=== PATIENT | male | born 1970 | race Caucasian/White ===

== ENCOUNTER → 2017-10-17 15:18 | Outpatient (CLI) | payer BC, SELFPAY | PROVIDERS: Family Provider Family Medicine; PCP Family Medicine; Visit Provider Family Medicine | DX: E03.9 Hypothyroidism, unspecified (principal) | CPT/HCPCS: 36415; 84443 ==

== ENCOUNTER → 2017-12-30 08:59 | Outpatient (CLI) | payer OTHER, SELFPAY ==
--- NOTE | 2017-12-30 09:11 | RAD_ITS ---
STUDY: X-RAY - LUMBAR SPINE REASON FOR EXAM: Male, 47 years old. Low back strain. TECHNIQUE: 5 view(s) of the lumbar spine were obtained including oblique views. COMPARISON: None FINDINGS: Normal lumbar lordosis. There is no substantial scoliosis. There is a normal alignment of the vertebrae. There is mild degree of endplate spondylosis of the lumbar vertebrae. Normal disc space heights. The soft tissue structures are unremarkable. RAD/L/S Spine Min 4 Views IMPRESSION: Degenerative changes of the spine, as detailed above. Electronically Signed: Jaime Luis MD at 9:42 EDT Tel [phone], Service support ,
== END ==
PROVIDERS: Family Provider Family Medicine; PCP Family Medicine; Visit Provider Physician Assistant Surgical
DX: S39.012A Strain of muscle, fascia and tendon of lower back, initial encounter (principal)
CPT/HCPCS: 72110

== ENCOUNTER → 2018-06-03 15:24 | Outpatient (CLI) | payer BC, SELFPAY ==
[2018-06-03 17:54] LABS: Anion Gap 8 (5-15); BUN 19 mg/dL (7-18); BUN/Creat Ratio 19.3 RATIO (10-20); Calcium,Total 8.6 mg/dL (8.5-10.1); Chloride 106 mmol/L (98-107); Creatinine, Serum 0.98 mg/dL (0.70-1.30); EST Glomerular Filtration Rate 86 mL/min (>60); Est Glom Filt Rate - Afr Amer 104 mL/min (>60); Glucose 93 mg/dL (74-106); Potassium 3.8 mmol/L (3.5-5.1); Sodium Level 141 mmol/L (136-145); T4 Free Direct 1.12 ng/dL (0.76-1.46)
[2018-06-03 18:06] LABS: Vitamin D,25 Hydroxy 63.4 ng/mL (29.95-100.01)
== END ==
PROVIDERS: Family Provider Family Medicine; PCP Family Medicine; Visit Provider Family Medicine
DX: E03.9 Hypothyroidism, unspecified (principal); E55.9 Vitamin D deficiency, unspecified
CPT/HCPCS: 36415; 80048; 82306; 84439; 84443

== ENCOUNTER → 2019-03-19 16:11 | Outpatient (CLI) | payer BC, SELFPAY ==
[2018-08-19 15:25] VITALS: BMI 28.0
[2019-03-19 17:43] LABS: Anion Gap 6 (5-15); BUN 16 mg/dL (7-18); BUN/Creat Ratio 12.9 RATIO (10-20); Calcium,Total 8.8 mg/dL (8.5-10.1); Chloride 107 mmol/L (98-107); Creatinine, Serum 1.24 mg/dL (0.70-1.30); EST Glomerular Filtration Rate 66 mL/min (>60); Est Glom Filt Rate - Afr Amer 79 mL/min (>60); Glucose 81 mg/dL (74-106); Potassium 3.8 mmol/L (3.5-5.1); Sodium Level 142 mmol/L (136-145); T4 Free Direct 0.99 ng/dL (0.76-1.46); Vitamin D,25 Hydroxy 68.9 ng/mL (29.95-100.01)
== END ==
PROVIDERS: Family Provider Family Medicine; PCP Family Medicine; Visit Provider Family Medicine
DX: E03.9 Hypothyroidism, unspecified (principal); E55.9 Vitamin D deficiency, unspecified; N20.0 Calculus of kidney
CPT/HCPCS: 36415; 80048; 82306; 84439; 84443

== ENCOUNTER 2019-05-08 09:02 | Emergency (ER) | payer BC, SELFPAY ==
[2018-08-19 15:25] VITALS: BMI 28.0
[2019-05-08 09:02] VITALS: BP 136/77; PULSE 68; RESP 19; TEMP 36.9; O2SAT 99; BMI 28.3
--- NOTE | 2019-05-08 09:12 | CT_ITS ---
STUDY: CT ABDOMEN AND PELVIS WITH CONTRAST REASON FOR EXAM: Male, 49 years old. Abdominal pain. Vomiting. Nausea. Diarrhea. RADIATION DOSAGE (If Supplied By Facility): CTDIvol = ( 13.55 ) mGy, DLP = ( 791.83 ) mGycm TECHNIQUE: Transaxial images were obtained from the dome of the diaphragm to the symphysis pubis without oral contrast. 100mL IV Isovue 300 was administered. Sagittal and coronal images were reconstructed. Individualized dose optimization techniques were used for this CT. COMPARISON: January 25, 2017. FINDINGS: Lung bases: Slightly coarse lung markings. No acute process. Heart: Mitral valve calcifications. Liver: Portal venous congestion. No focal hepatic lesions. Mild hepatic steatosis. Gallbladder/biliary ducts: Unremarkable. Pancreas: Unremarkable. Spleen: Unremarkable. Adrenal glands: Unremarkable. Kidneys/ureters/bladder: Slightly delayed left renal (axial image 40 series 2). Left perinephric/periureteral fat stranding. Mildly distended left ureter. Punctate 1 mm left distal ureteral stone (axial image 107 series 2). Normal urinary bladder. Normal right ureter. Prostate: Punctate prostate calcifications. Large bowel/small bowel: Underdistended sigmoid colon. No perforation. No obstruction. No pneumatosis. No acute large bowel or small bowel process. Appendix: No secondary signs of appendicitis. Gastroesophageal junction/stomach: Unremarkable. Retroperitoneum/lymph nodes: No intra-abdominal free air. No ascites. No pathologically enlarged lymph nodes. Vascular: Minimal vascular calcification. No acute process. Osseous structures: Minimal degenerative changes. No acute process. Subcutaneous/soft tissues: Tiny fat-containing umbilical hernia. Minimal paraspinal muscle atrophy. No acute process. CT/Abdomen/Pelvis W IV Cont ONLY IMPRESSION: 1 mm minimally obstructive left distal ureteral stone with mild left hydroureteronephrosis, delayed left nephrogram, left perinephric/periureteral fat stranding concerning for ascending urinary tract infection/pyelonephritis (correlate urinalysis, blood cultures and WBC) Nonspecific portal venous congestion Additional chronic/degenerative findings, as above Electronically Signed: Jaosn Putnam DO at 10:37 EDT Tel , Service support ,
--- NOTE | 2019-05-08 09:13 | ED.DCSUM_ITS ---
History of Present Illness Informant: Patient - Abdominal Pain/Flank Pain Onset: Today Context: Gradual Onset Timing: Continuous Quality: Dull Location: LLQ Current Severity: Severe Maximum Severity: Severe Worsened by: Movement Relieved by: Remaining Still - Nausea/Vomiting/Emesis GI Symptom: Nausea. Negative for: Vomiting Onset: Today Quality: Negative for: Nonbilious, Blood streaks, Coffee ground, Hematemesis Severity: Moderate - Diarrhea/Melena/Hematochezia GI Symptom: Diarrhea. Negative for: Melena, Hematochezia Onset: Today Stool Quality: Loose, Watery. Negative for: Mucous, Black, Maroon, KRAIG per rectum Severity: Moderate Associated Symptoms: Negative for: Dysuria, Frequency, Hematuria, Urgency Narrative: 49-year-old male presents with left lower quadrant abdominal pain. Symptoms woke him up from sleep about 7 to 8 hours ago. They have been constant. It is a dull sharp pain, left lower quadrant. It does not radiate. He has had nausea without vomiting. He has had 2 episodes of loose stool. No melena or hematochezia. No urinary symptoms. No back pain. No fevers. History of kidney stones but states that this feels different. He denies any history of colonoscopy or abdominal surgery. Prior similar symptoms: No Recent Illness/Hospitalization: No <Ld Proctor - Last Filed: 05/08/19 12:04> <Prasanna Silva - Last Filed: 05/08/19 16:13> Chief Complaint: Abd Pain Past Medical History Prior records reviewed: Yes Past Medical History: - - seizures Surgical History: no surgical history Lives: With Family Smoking Status: Never smoker <Ld Proctor - Last Filed: 05/08/19 12:04> <Prasanna Silva - Last Filed: 05/08/19 16:13> - Allergies and Home Meds Allergies/Adverse Reactions: Allergies No Known Allergies Allergy (Verified 08/19/18 15:26) Primary Care Physician: Kemal Brown MD [STAFF PHYSICIAN] - Russ Hager MD [Primary Care Provider] - Review of Systems All systems negative except as indicated General: Denies: Chills, Fever Cardiovascular: Denies: Chest pain Respiratory: Denies: Dyspnea Gastrointestinal: Reports: Abdominal pain, Nausea, Diarrhea. Denies: Vomiting, Constipation, Melena, Hematochezia Genitourinary: Denies: Dysuria, Hematuria, Frequency <Ld Proctor - Last Filed: 05/08/19 12:04> Physical Exam Vital Signs/Narrative: Vital Signs Temp Pulse Resp BP Pulse Ox 05/08/19 09:02 98.4 F 68 19 H 136/77 H 99 Inital Vital Signs reviewed: Yes General: Well nourished, Well developed, No Acute Distress Head: Normocephalic, Atraumatic Eyes: Perrl, EOMI ENT: Moist mucous membranes Neck: Supple, Nontender Cardiovascular: Regular rate, Regular rhythm, Bradycardia Respiratory: No distress, CTA bilaterally Abdomen: Soft, Nondistended, Normal bowel sounds, No masses, Tender - LLQ TTP. no peritoneal signs . Negative for: Guarding, Rebound tenderness Back: Nontender, Normal Inspection. Negative for: CVA tenderness Extremities: Nontender, No edema Skin: Normal color, No rash Neurological: Alert, Oriented x3, Normal Gait <Felicia Proctorony - Last Filed: 05/08/19 12:04> Vital Signs/Narrative: Vital Signs Pulse Resp BP Pulse Ox 05/08/19 12:14 62 15 129/74 H 98 <Prasanna Silva - Last Filed: 05/08/19 16:13> Diagnostic/Tx/Re-eval CT: Flank - Medical Decision Making Patient was treated with morphine Zofran Toradol and IV fluids. Laboratory work-up was unremarkable. Urinalysis is negative. CT scan shows a 1 mm stone with pyelonephritis. Pain is improved. Repeat abdominal exam is soft and nontender. Patient is able to tolerate by mouth. Will discharge home with Percocet Flomax and Cipro. We will follow-up with urology. <HiteshLd - Last Filed: 05/08/19 12:04> - Medical Decision Making I performed a history and physical examination of the patient and discussed management plan with the physician carpenter's assistant. I reviewed the physician carpenter's assistant's note and agree with the documented findings and plan of care. Patient said left lower quadrant abdominal pain. He has a history of kidney stones. He also notes vomiting and diarrhea. CT demonstrates a small distal ureteral stone with associated hydronephroureter. He was treated symptomaticall y. He will be discharged home the stone most likely will pass. Prasanna Silva DO, MS, FACEP <Prasanna Silva - Last Filed: 05/08/19 16:13> ED Disposition <Ld Proctor - Last Filed: 05/08/19 12:04> <Prasanna Silva - Last Filed: 05/08/19 16:13> - Plan for ED Patient: Disposition: Home or Assisted Living Diagnosis: Kidney stone on left side Instructions: KIDNEY STONE w/ Colic Prescriptions: Ciprofloxacin [Cipro] 500 mg PO BID #20 tab Prescription Printed Tamsulosin HCl [Flomax] 0.4 mg PO DAILY #7 cap Prescription Printed Oxycodone HCl/Acetaminophen [Percocet 5/325] 1 tab PO Q6H PRN PRN 3 Days #12 tab PRN Reason: Pain Prescription Printed Referrals: Russ Hager MD [Primary Care Provider] - Kemal Brown MD [STAFF PHYSICIAN] -
[2019-05-08 09:22] LABS: Absolute Lymphocyte Count 1.09 X10^3/uL (0.83-4.51); Absolute Neutrophil Count 8.8 X10^3/uL (2.0-7.7); Basophil# 0.06 X10^3/uL; Basophil% 0.5 % (0-1); Hematocrit 40.6 % (40-54); Hemoglobin 13.8 g/dL (13.0-16.5); Lymphocyte # 1.09 X10^3/ul (4.0); Lymphocyte % 9.9 % (19-41); Mean Corpuscular Hgb 32.8 pg (27.0-32.0); Mean Corpuscular Volume 96.4 fL (80-94); Mean Platelet Vol. 8.8 fl (6.2-12.0); Monocyte# 0.96 X10^3/uL; Monocyte% 8.8 % (0-10); NRBC Flagged by Analyzer 0 % (0-5); Neutrophil # 8.82 X10^3/uL (2.7-7.7); Neutrophil % 80.5 % (47-70); POSITIVE MORPHOLOGY YES; Platelet Count 161 K/mm3 (150-450); RBC Distribution Width SD 42.5 fl (35.1-43.9); Red Blood Count 4.21 M/mm3 (4.6-6.2)
[2019-05-08 09:24] LABS: Differential Indicated SCAN CRITERIA MET
[2019-05-08] MEDS: Morphine 4 MG/ML Syringe IV (09:29)
[2019-05-08] MEDS: Ondansetron 4 MG/2 ML Vial IV (09:29)
[2019-05-08] MEDS: 0.9% Normal Saline 1,000 ML 1000 ML IV (09:29)
[2019-05-08] MEDS: Ketorolac 15 MG/ML Vial IV (09:59)
[2019-05-08 10:09] LABS: Anion Gap 8 (5-15); BUN 20 mg/dL (7-18); BUN/Creat Ratio 13.9 RATIO (10-20); Calcium,Total 8.4 mg/dL (8.5-10.1); Chloride 108 mmol/L (98-107); Creatinine, Serum 1.44 mg/dL (0.70-1.30); EST Glomerular Filtration Rate 55 mL/min (>60); Est Glom Filt Rate - Afr Amer 67 mL/min (>60); Estimated Creatinine Clearance 61.37 ml/min; Glucose 105 mg/dL (74-106); Potassium 5.5 mmol/L (3.5-5.1); Sodium Level 143 mmol/L (136-145)
[2019-05-08] MEDS: 0.9% Normal Saline 1,000 ML 250 ML IV (10:29)
[2019-05-08 11:37] LABS: Bacteria 0 SEEN /hpf (None Seen); Mucous, Urine 0 SEEN /hpf (<or=2+); Red Blood Cells-Urine 0 SEEN /hpf (0-5); Squamous Epithelial Cells - UA 0 SEEN /hpf (0-5); White Blood Cells 0 SEEN /hpf (0-5)
[2019-05-08 11:44] LABS: Color, Urine Straw (Yellow); Glucose, Dipstick Normal (Normal); Ketone-Dipstick Negative (Negative); Leukocyte Esterase-Dipstick Negative /ul (Negative); Nitrite-Dipstick Negative (Negative); Occult Blood-Urine Negative /ul (Negative); Protein-Dipstick Negative (Negative); Urine Bilirubin Dipstick Negative (Negative); Urine Clarity Clear (Clear); Urine Urobilinogen Normal (Normal); Urine pH 6.5 (5.0 - 8.0)
[2019-05-08 12:14] VITALS: BP 129/74; PULSE 62; RESP 15; O2SAT 98
[2019-05-08] MEDS: oxyCODONE 5 MG Tablet PO (12:18)
== END 2019-05-08 12:36 | disposition home or self-care (01) ==
PROVIDERS: Emergency Provider Physician Assistant Medical; Family Provider Family Medicine; PCP Family Medicine
DX: N13.6 Pyonephrosis (principal); R19.7 Diarrhea, unspecified; Z79.899 Other long term (current) drug therapy; Z87.442 Personal history of urinary calculi
CPT/HCPCS: 74177; 80048; 81001; 85025; 96361; 96374; 96375; 99285; J7030; Q9967; A4216; J2405

== ENCOUNTER → 2020-08-25 15:46 | Outpatient (CLI) | payer BC, SELFPAY ==
[2020-08-25 17:47] LABS: Absolute Lymphocyte Count 1.78 X10^3/uL (0.83-4.51); Absolute Neutrophil Count 3.5 X10^3/uL (2.0-7.7); Basophil# 0.04 X10^3/uL; Basophil% 0.7 % (0-1); Hemoglobin 13.5 g/dL (13.0-16.5); Lymphocyte # 1.78 X10^3/ul (4.0); Lymphocyte % 30.1 % (19-41); Mean Corp Hgb Conc 34.6 g/dL (32-36); Mean Corpuscular Hgb 32.1 pg (27.0-32.0); Mean Corpuscular Volume 92.9 fL (80-94); Mean Platelet Vol. 9.6 fl (6.2-12.0); Monocyte# 0.54 X10^3/uL; Monocyte% 9.1 % (0-10); NRBC Flagged by Analyzer 0 % (0-5); Neutrophil # 3.54 X10^3/uL (2.7-7.7); Neutrophil % 59.9 % (47-70); Platelet Count 187 K/mm3 (150-450); RBC Distribution Width SD 40.6 fl (35.1-43.9); White Blood Count 5.9 K/mm3 (4.4-11.0)
[2020-08-25 18:02] LABS: Erythrocyte Sedimentation Rate 22 mm/hr (0-20)
[2020-08-25 18:04] LABS: Vitamin B12 449 pg/mL (211-911); Vitamin D,25 Hydroxy 23.9 ng/mL
[2020-08-25 18:21] LABS: Anion Gap 8 (5-15); BUN 16 mg/dL (7-18); BUN/Creat Ratio 12.8 RATIO (10-20); CRP < 2.90 mg/L (0.0-3.0); Calcium,Total 8.6 mg/dL (8.5-10.1); Chloride 103 mmol/L (98-107); Creatinine, Serum 1.25 mg/dL (0.70-1.30); EST Glomerular Filtration Rate 65 mL/min (>60); Est Glom Filt Rate - Afr Amer 78 mL/min (>60); Glucose 90 mg/dL (74-106); Potassium 3.6 mmol/L (3.5-5.1); Sodium Level 138 mmol/L (136-145); T4 Free Direct 1.23 ng/dL (0.76-1.46); Thyroid Stim Hormone (TSH) 5.14 uIU/mL (0.358-3.74); Uric Acid 6.3 mg/dL (3.5-7.2)
== END ==
PROVIDERS: PCP Family Medicine; Visit Provider Family Medicine
DX: E03.9 Hypothyroidism, unspecified (principal); I73.00 Raynaud's syndrome without gangrene; E55.9 Vitamin D deficiency, unspecified; N20.0 Calculus of kidney
CPT/HCPCS: 36415; 80048; 82306; 82607; 84439; 84443; 84550; 85025; 85652; 86140

== ENCOUNTER → 2020-10-13 14:23 | Outpatient (CLI) | payer BC, SELFPAY ==
[2020-10-13 17:55] LABS: Thyroid Stim Hormone (TSH) 6.87 uIU/mL (0.358-3.74)
== END ==
PROVIDERS: PCP Family Medicine; Visit Provider Family Medicine
DX: E03.9 Hypothyroidism, unspecified (principal)
CPT/HCPCS: 36415; 84443

== ENCOUNTER → 2023-01-25 | Outpatient (CLI) | payer BC, SELFPAY ==
[2023-01-25 11:17] LABS: Absolute Lymphocyte Count 1.69 X10^3/uL (0.83-4.51); Absolute Neutrophil Count 2.9 X10^3/uL (2.0-7.7); Basophil# 0.04 X10^3/uL; Basophil% 0.8 % (0-1); Eosinophil# 0.02 X10^3/uL; Eosinophils% 0.4 % (0-5); Hematocrit 38.7 % (40-54); Hemoglobin 13.4 g/dL (13.0-16.5); Lymphocyte # 1.69 X10^3/ul (0.83-4.51); Lymphocyte % 32.9 % (19-41); Mean Corp Hgb Conc 34.6 g/dL (32-36); Mean Corpuscular Hgb 32.8 pg (27.0-32.0); Mean Corpuscular Volume 94.9 fL (80-94); Mean Platelet Vol. 9.3 fl (6.2-12.0); Monocyte# 0.47 X10^3/uL; Monocyte% 9.1 % (0-10); NRBC Flagged by Analyzer 0 % (0-5); Neutrophil # 2.91 X10^3/uL (2.7-7.7); Neutrophil % 56.6 % (47-70); Platelet Count 144 K/mm3 (150-450); RBC Distribution Width CV 12.1 % (11.6-14.6); RBC Distribution Width SD 41.9 fl (35.1-43.9); Red Blood Count 4.08 M/mm3 (4.6-6.2); White Blood Count 5.1 K/mm3 (4.4-11.0)
[2023-01-25 11:43] LABS: Erythrocyte Sedimentation Rate 16 mm/hr (0-20)
[2023-01-25 12:32] LABS: AST(SGOT) 37 U/L (15-37); Alanine Aminotransfer ALT/SGPT 43 U/L (16-61); Albumin, Serum 3.9 g/dL (3.2-5.0); Alkaline Phosphatase 100 U/L (45-117); Anion Gap 5 (5-15); BUN 20 mg/dL (7-18); BUN/Creat Ratio 22.4 RATIO (10-20); CRP < 2.90 mg/L (0.0-3.0); Calcium,Total 8.8 mg/dL (8.5-10.1); Chloride 109 mmol/L (98-107); Cholesterol 213 mg/dL (200); Creatinine, Serum 0.89 mg/dL (0.70-1.30); EST Glomerular Filtration Rate 94 mL/min (>60); Est Glom Filt Rate - Afr Amer 114 mL/min (>60); Globulin 4.1 g/dL (2.2-4.2); Glucose 96 mg/dL (74-106); High Density Lipoprotein 48 mg/dL; PSA,Total - Annual Screen 0.35 ng/mL (0.00-4.00); Sodium Level 140 mmol/L (136-145); T4 Free Direct 1.22 ng/dL (0.76-1.46); Thyroid Stim Hormone (TSH) 0.36 uIU/mL (0.358-3.74); Triglycerides 70 mg/dL; Very Low Density Lipoprotein 14 mg/dL (5-40)
[2023-01-27 08:57] LABS: Vitamin D,25 Hydroxy 33.6 ng/mL
== END | disposition home or self-care (01) ==
PROVIDERS: PCP Nurse Practitioner Family; Referring Provider Nurse Practitioner Family; Visit Provider Nurse Practitioner Family
DX: Z00.00 Encounter for general adult medical examination without abnormal findings (principal); E03.9 Hypothyroidism, unspecified; E55.9 Vitamin D deficiency, unspecified; G44.85 Primary stabbing headache
CPT/HCPCS: 36415; 80053; 80061; 82306; 84153; 84439; 84443; 85025; 85652; 86140; G0103

== ENCOUNTER → 2023-02-10 | Outpatient (CLI) | payer BC, SELFPAY ==
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
== END | disposition home or self-care (01) ==
LOC: CT 15:43
PROVIDERS: PCP Nurse Practitioner Family; Referring Provider Nurse Practitioner Family; Visit Provider Nurse Practitioner Family
DX: G44.85 Primary stabbing headache (principal)
CPT/HCPCS: 70470; Q9967

== ENCOUNTER → 2023-07-23 | Outpatient (CLI) | payer BC, SELFPAY ==
[2023-07-23 17:35] LABS: T4 Free Direct 1.43 ng/dL (0.76-1.46); Thyroid Stim Hormone (TSH) 0.23 uIU/mL (0.358-3.74)
== END | disposition home or self-care (01) ==
LOC: LAB 16:25
PROVIDERS: PCP Nurse Practitioner Family; Referring Provider Nurse Practitioner Family; Visit Provider Nurse Practitioner Family
DX: E03.9 Hypothyroidism, unspecified (principal)
CPT/HCPCS: 36415; 84439; 84443

== ENCOUNTER → 2024-04-13 | Outpatient (CLI) | payer BC, SELFPAY ==
[2024-04-13 17:59] LABS: Absolute Lymphocyte Count 1.72 X10^3/uL (0.83-4.51); Basophil# 0.03 X10^3/uL; Basophil% 0.6 % (0-1); Hematocrit 38.7 % (40-54); Hemoglobin 12.9 g/dL (13.0-16.5); Lymphocyte # 1.72 X10^3/ul (0.83-4.51); Lymphocyte % 32.5 % (19-41); Mean Corp Hgb Conc 33.3 g/dL (32-36); Mean Corpuscular Hgb 32.1 pg (27.0-32.0); Mean Corpuscular Volume 96.3 fL (80-94); Mean Platelet Vol. 9.3 fl (6.2-12.0); Monocyte% 9.5 % (0-10); NRBC Flagged by Analyzer 0 % (0-5); Neutrophil # 3.03 X10^3/uL (2.7-7.7); Neutrophil % 57.2 % (47-70); Platelet Count 166 K/mm3 (150-450); RBC Distribution Width CV 11.9 % (11.6-14.6); RBC Distribution Width SD 42.1 fl (35.1-43.9); Red Blood Count 4.02 M/mm3 (4.6-6.2); White Blood Count 5.3 K/mm3 (4.4-11.0)
[2024-04-13 18:03] LABS: Vitamin D,25 Hydroxy 26.3 ng/mL
[2024-04-13 18:05] LABS: BNP,B-Type NATRIURETIC PEPTIDE 32.1 pg/mL (0-100)
[2024-04-13 18:12] LABS: ALB/GLOB Ratio 0.9 RATIO (0.9-2.4); AST(SGOT) 30 U/L (15-37); Alanine Aminotransfer ALT/SGPT 31 U/L (16-61); Albumin, Serum 3.9 g/dL (3.2-5.0); Alkaline Phosphatase 71 U/L (45-117); Anion Gap 5 (5-15); BUN 13 mg/dL (7-18); BUN/Creat Ratio 11.9 RATIO (10-20); Calcium,Total 8.9 mg/dL (8.5-10.1); Chloride 106 mmol/L (98-107); Cholesterol 202 mg/dL (200); Creatinine, Serum 1.09 mg/dL (0.70-1.30); EST Glomerular Filtration Rate 75 mL/min (>60); Est Glom Filt Rate - Afr Amer 90 mL/min (>60); Globulin 4.5 g/dL (2.2-4.2); Glucose 85 mg/dL (74-106); High Density Lipoprotein 48 mg/dL; PSA,Total - Annual Screen 0.33 ng/mL (0.00-4.00); Potassium 3.5 mmol/L (3.5-5.1); Protein, Total 8.4 g/dL (6.4-8.2); Sodium Level 139 mmol/L (136-145); T4 Free Direct 1.15 ng/dL (0.76-1.46); Triglycerides 152 mg/dL; Very Low Density Lipoprotein 30 mg/dL (5-40)
[2024-04-13 19:26] LABS: Hemoglobin A1c 5.3 % (3.8-5.6)
[2024-04-15 13:08] LABS: CRP, High Sensitivity 0.24 mg/L (0.00-3.00)
== END | disposition home or self-care (01) ==
LOC: BFHLAB 15:56
PROVIDERS: PCP Nurse Practitioner Family; Referring Provider Nurse Practitioner Family; Visit Provider Nurse Practitioner Family
DX: Z00.01 Encounter for general adult medical examination with abnormal findings (principal); E03.9 Hypothyroidism, unspecified; E55.9 Vitamin D deficiency, unspecified; Z12.5 Encounter for screening for malignant neoplasm of prostate; R73.01 Impaired fasting glucose; R07.9 Chest pain, unspecified
CPT/HCPCS: 36415; 80053; 80061; 82306; 83036; 83880; 84153; 84439; 84443; 85025; 86141; G0103

== ENCOUNTER → 2024-05-07 | Outpatient (CLI) | payer BC, SELFPAY ==
--- NOTE | 2024-05-07 10:52 | STEWCON_ITS ---
Reason For Study: chest pain. rheumatic fever as a [place] with valve repair Stress Results Stress Echocardiogram Usama Protocol with Protocol: Definity Maximum Predicted HR: 165 bpm Target HR: 140 bpm % Maximum Predicted HR: 86 % Heart Stage Duration Rate BP Comment (mm:ss) (bpm) Baseline 66 140/84Patient denies chest pain Stage 1 3:00 101 132/84Patient denies chest pain Stage 2 3:00 123 166/86Patient complains of shortness of breath. Denies chest pain. Patient complain of increased shortness of breath. Denies chest Stage 3 3:00 142 166/88pain. Recovery 90 130/80Definity 2ml total used per protocol Stress Duration: 9:00 mm:ss Maximum Stress HR: 142 bpm Baseline Echocardiogram Findings The estimated ejection fraction is 65 %. Postexercise EF is 75%. Stress Echo Wall motion Data Resting WM Intermediate WM Stress WM Resting Wall Motion Wall Motion Stress No regional wall motion No regional wall motion abnormalities noted. abnormalities noted. EKG Data The baseline ECG displays normal sinus rhythm. No significant ischemic changes. Symptoms with Stress The patient experinced No chest pain . Doppler Measurements & Calculations MV V2 max: 200.5 cm/sec MV P1/2t max adriana: 198.4 cm/sec MR max adriana: 552.0 cm/sec MV max P.1 mmHg MV P1/2t: 96.5 msec MR max P.9 mmHg MV V2 mean: 110.5 cm/sec MV mean P.7 mmHg MV dec slope: 602.3 cm/sec2 MV V2 VTI: 65.1 cm MVA(P1/2t): 2.3 cm2 TR max adriana: 255.1 cm/sec TR max P.0 mmHg ECHO/Stress Test Echo W/Contrast Interpretation Summary The estimated ejection fraction is 65 %. Stress echo is negative for exercise-induced chest pain or EKG changes or echoc ardiographic changes of ischemia. Functional capacity is excellent for age Ordering Physician: Marycarmen Parrish Referring Physician: Marycarmen Parrish Performed By: Meera López RDCS, RVT
== END | disposition home or self-care (01) ==
PROVIDERS: PCP Nurse Practitioner Family; Referring Provider Nurse Practitioner Family; Visit Provider Nurse Practitioner Family
DX: R07.9 Chest pain, unspecified (principal)
CPT/HCPCS: 93017; 93350; Q9957; A4216; C8928

== ENCOUNTER → 2024-09-10 | Outpatient (CLI) | payer BC, SELFPAY ==
--- NOTE | 2024-09-10 16:12 | RAD_ITS ---
STUDY: X-RAY CHEST REASON FOR EXAM: Male, 54 years old. cough TECHNIQUE: PA and lateral COMPARISON: June 21, 2016 FINDINGS: There is mild asymmetric interstitial thickening in the right lower lobe which is new finding since prior exam possibly representing early inflammatory changes. There is no demonstrated pleural abnormality. Normal size heart. Normal mediastinum and sherine. Normal visualized pulmonary arteries. Normal visualized aortic arch and descending thoracic aorta. Normal visualized thoracic spine. Normal visualized ribs, clavicles, and shoulders. There is no demonstrated abnormality of the visualized soft tissue structures of the upper abdomen. RAD/Chest PA and Lateral IMPRESSION: Findings which may be consistent with mild inflammatory changes in the right lower lobe Electronically Signed: Lázaro Macias MD at 16:38 EST ,
== END | disposition home or self-care (01) ==
LOC: MTRAD 16:12
PROVIDERS: PCP Nurse Practitioner Family; Referring Provider Physician Assistant Surgical; Visit Provider Physician Assistant Surgical
DX: R05.9 Cough, unspecified (principal)
CPT/HCPCS: 71046